=== PATIENT | male | born 1940 | race Asian ===

== ENCOUNTER 2018-05-26 13:28 | Inpatient (IN) | payer OTHER ==
[~2018-05-26] VITALS: Ht 167.6 cm; Wt 61.7 kg
[2018-05-26] MEDS ORDERED: AMLO10TA4 PO (14:19)
[2018-05-26] MEDS ORDERED: ATEN100T PO (14:19)
[2018-05-26] MEDS ORDERED: HYDR25TA4 PO (14:19)
[2018-05-26] MEDS ORDERED: LOSA50TA21 PO (14:19)
[2018-05-26] MEDS ORDERED: TAMS-12 PO (14:19)
[2018-05-26] MEDS ORDERED: ASPI-1169 PO (14:19)
[2018-05-26] MEDS ORDERED: ERGO500014 PO (14:19)
[2018-05-26] MEDS ORDERED: ATOR10TA PO (14:19)
[2018-05-26 14:44] LABS: BASOPHILS % (AUTO) 0.7 % (0.0-2.0); EOSINOPHILS % (AUTO) 1.8 % (0.0-6.0); HEMATOCRIT 38 % (39-51); HEMOGLOBIN 12.8 g/dL (13.5-17.5); LYMPHOCYTES # (AUTO) 1.5 /CMM (0.8-4.8); LYMPHOCYTES % (AUTO) 29.7 % (20.0-44.0); MEAN CORPUSCULAR HEMOGLOBIN 32 PG (26.0-33.0); MEAN CORPUSCULAR HGB CONC 34 g/dl (31.0-36.0); MEAN CORPUSCULAR VOLUME 92 fL (80-96); MONOCYTES # (AUTO) 0.4 /CMM (0.1-1.30); MONOCYTES % (AUTO) 8.5 % (2.0-12.0); NEUTROPHILS % (AUTO) 59.3 % (43.0-81.0); PLATELET COUNT (AUTO) 206 /CMM (150-450); RDW COEFFICIENT OF VARIATION 11.7 (11.5-15.0); RED BLOOD CELL COUNT(AUTO) 4.08 MIL/uL (4.5-6.0)
[2018-05-26 14:53] LABS: CALCIUM, SERUM 8.3 mg/dL (8.5-10.1); CARBON DIOXIDE 30 mmol/L (21-32); CHLORIDE 104 mmol/L (98-107); CREATININE 0.9 mg/dL (0.6-1.3); GLUCOSE 115 mg/dL (74-106); POTASSIUM 4.1 mmol/L (3.5-5.1); SODIUM SERUM 137 mmol/L (136-145); UREA NITROGEN, BLOOD 19 mg/dL (7-18)
[2018-05-26 14:58] LABS: ALANINE AMINOTRANSFERASE 34 U/L (12-78); ALBUMIN 3.3 g/dL (3.4-5.0); ALCOHOL, BLOOD < 3 mg/dL (0-0); ALKALINE PHOSPHATASE 64 U/L (46-116); ASPARTATE AMINOTRANSFERASE 28 U/L (15-37); BILIRUBIN,DIRECT 0.1 mg/dL (0.0-0.2); BILIRUBIN,TOTAL 0.6 mg/dL (0.2-1.0); TOTAL PROTEIN, SERUM 6.3 g/dL (6.4-8.2)
[2018-05-26 15:04] LABS: ACETAMINOPHEN < 2 ug/ml (10-30); SALICYLATE < 2.8 mg/dL (2.8-20.0)
[2018-05-26] MEDS ORDERED: SULFAMETH/TRIMETH 800/160 MG 1 UDTAB TABLET PO ONE ×2 (15:30→15:48)
[2018-05-26] MEDS ORDERED: CEPHALEXIN MONOHYDRATE 500 MG CAPSULE PO ONE ×2 (15:30→15:48)
[2018-05-26 15:48] LABS: APPEARANCE,URINE Clear (CLEAR); BILIRUBIN,URINE Negative (NEGATIVE); BLOOD, URINE Trace-intact Ery/uL (NEGATIVE); COLOR,URINE Yellow (YELLOW); KETONES,URINE 15 (NEGATIVE); LEUKOCYTE ESTERASE ,URINE Negative (NEGATIVE); NITRITE, URINE Negative (NEGATIVE); PH,URINE 6.5 (5.0-8.0); PROTEIN,URINE Negative (NEGATIVE); UGLUCOSE Negative (NEGATIVE); UROBILINOGEN,URINE 0.2 EU/dL (0.2)
[2018-05-26 16:03] LABS: BACTERIA,URINE None seen /HPF (None Seen); SQUAMOUS EPITHELIAL CELL,UR Few /HPF (None Seen); WBC,URINE 0-2 /HPF (0-3)
--- NOTE | 2018-05-26 16:06 | NUR ---
REPORT GIVEN TO GIORGIO ARROYO FOR MARCIE
[2018-05-26] MEDS ORDERED: MAG HYDROX/AL HYDROX/SIMETH 30 ML UDC PO PRN (17:00)
[2018-05-26] MEDS ORDERED: ACETAMINOPHEN 325 MG TABLET PO PRN (17:00)
[2018-05-26] MEDS ORDERED: MAGNESIUM HYDROXIDE 30 ML UDC PO PRN (17:00)
--- NOTE | 2018-05-26 18:26 | NUR ---
ADMISSION NOTE: PATIENT ARRIVED FROM ER AT 1430. PATIENT ADMITTED FOR PSYCHOSIS. CALM COOPERATIVE. PSYCHIATRIST NOTIFIED, ORDERS IN. DEPUTY MANAGER PAGED FOR MED RECON, BUT NO REPLY YET. WILL FOLLOW UP WITH INCOMING NURSE. BELONGINGS CHECKED IN. MEDS BROUGHT IN BY PATIENT CHECKED IN. SKIN ASSESSMENT COMPLETE AND IN CHART. ADMISSION PAPERS SIGNED. ER SAID MRSA DONE. PATIENT ORIENTED TO UNIT POLICIES AND PROCEDURES. WILL KEEP THE PATIENT COMFORTABLE.
[2018-05-26 20:00] VITALS: BP 152/89
[2018-05-26] MEDS: ERGOCALCIFEROL (VITAMIN D 2) 50,000 UNIT CAPSULE PO SCH (22:14)
[2018-05-27] MEDS: ZOLPIDEM TARTRATE 5 MG TABLET PO PRN ×2 (01:21→23:03)
[2018-05-27 07:11] LABS: ALANINE AMINOTRANSFERASE 39 U/L (12-78); ALBUMIN 3.7 g/dL (3.4-5.0); ALKALINE PHOSPHATASE 55 U/L (46-116); ASPARTATE AMINOTRANSFERASE 28 U/L (15-37); BILIRUBIN,TOTAL 0.5 mg/dL (0.2-1.0); CARBON DIOXIDE 25 mmol/L (21-32); CHLORIDE 102 mmol/L (98-107); GLUCOSE 125 mg/dL (74-106); POTASSIUM 4.1 mmol/L (3.5-5.1); SODIUM SERUM 138 mmol/L (136-145); TOTAL PROTEIN, SERUM 7.1 g/dL (6.4-8.2); UREA NITROGEN, BLOOD 18 mg/dL (7-18)
[2018-05-27 07:13] LABS: CHOLESTEROL 175 mg/dL (<200); HDL CHOLESTEROL 73 mg/dL (40-60); LDL 95 mg/dL (0-99); TRIGLYCERIDES 88 mg/dL (30-150)
[2018-05-27 08:00] VITALS: BP 142/80
[2018-05-27] MEDS: CEPHALEXIN MONOHYDRATE 500 MG CAPSULE PO SCH ×2 (09:24→17:24)
[2018-05-27] MEDS: ASPIRIN 81 MG TAB.CHEW PO SCH (09:24)
[2018-05-27] MEDS: AMLODIPINE BESYLATE 10 MG TABLET PO SCH (09:25)
[2018-05-27] MEDS: HYDROCHLOROTHIAZIDE 25 MG TABLET PO SCH (09:25)
[2018-05-27] MEDS: LOSARTAN POTASSIUM 50 MG TABLET PO SCH (09:26)
[2018-05-27] MEDS: ATENOLOL 50 MG TABLET PO SCH (09:26)
[2018-05-27] MEDS: LORAZEPAM 0.5 MG TABLET PO PRN ×2 (09:27→22:01)
--- NOTE | 2018-05-27 11:56 | NUR ---
INITIAL DISCHARGE PLAN: Per pts son Syd [phone] pt will return home to [address] [phone]. SW will help form a safe and proper discharge in collaboration with .
[2018-05-27] MEDS: DIVALPROEX SODIUM 125 MG CAP.SPRINK PO SCH ×2 (12:16→22:01)
--- NOTE | 2018-05-27 15:02 | NUR ---
GUN REPORT: RASHID contacted [facility] [address] [place] [address] and spoke with Officer #[phone] to recover weapons from pts home. Officer stated that they first need permission from pts son Syd [phone] to recover weapons. RASHID will contact pts son to receive authorization. Addendum: 05/27/18 at 1529 by ANTONIO MIKE RASHID spoke with tube dispatcher #[phone] and provided them with confirmation to recover weapon from pts son. Officer stated they would be going to pts home to recover the weapon. Addendum: 05/27/18 at 1546 by ANTONIO MIKE RASHID received a phone call from Officer Jayme morales #[phone] to confirm weapons have been recovered from pts home. Addendum: 05/27/18 at 1549 by ANTONIO MIKE RASHID faxed hold and face sheet to [facility] [phone] per Officer Jayme's request.
--- NOTE | 2018-05-27 15:08 | NUR ---
RASHID contacted pts son Syd [phone] to notify him that pt had reported during psychiatric evaluation that he has 4 fire arms in his home. 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 Addendum: 05/27/18 at 1530 by ANTONIO MIKE Pts son gave SW confirmation that weapon was in the home and gave NOHEMY permission to recover weapon from pts home.
[2018-05-27 16:00] VITALS: BP 128/66
[2018-05-27] MEDS: TAMSULOSIN 0.4 MG CAP.SR.24H PO SCH (17:24)
[2018-05-27] MEDS: QUETIAPINE FUMARATE 25 MG TABLET PO SCH (17:24)
[2018-05-27] MEDS: ATORVASTATIN 10 MG TABLET PO SCH (17:25)
[2018-05-27 20:00] VITALS: BP 113/59
--- NOTE | 2018-05-28 04:27 | NUR ---
PT IS AGGRESSIVE, HOSTILE, SCREAMING/YELLING, COMBATIVE AT STAFF, VERBALLY ABUSIVE, HIT HIS HEAD ON THE WALL. CALLED DR. OBANDO FOR IM ORDER. ORDERED ZYPREXA 5MG, ATIVAN 1MG IM GIVEN ORDERED. V/S WNL. PT TOLERATED WELL. WILL CONTINUE TO MONITOR FOR SAFETY AND BEHAVIOR [id number].
[2018-05-28] MEDS ORDERED: OLANZAPINE 10 MG VIAL IM ONE (04:30)
[2018-05-28] MEDS ORDERED: LORAZEPAM INJ 2 MG/ML VIAL IM ONE (04:30)
[2018-05-28 08:00] VITALS: BP 123/65
[2018-05-28] MEDS: ASPIRIN 81 MG TAB.CHEW PO SCH (08:58)
[2018-05-28] MEDS: CEPHALEXIN MONOHYDRATE 500 MG CAPSULE PO SCH ×2 (08:58→17:17)
[2018-05-28] MEDS: DIVALPROEX SODIUM 125 MG CAP.SPRINK PO SCH ×2 (08:58→22:08)
[2018-05-28] MEDS: QUETIAPINE FUMARATE 25 MG TABLET PO SCH ×2 (08:59→17:17)
[2018-05-28] MEDS: HYDROCHLOROTHIAZIDE 25 MG TABLET PO SCH (08:59)
[2018-05-28] MEDS: AMLODIPINE BESYLATE 10 MG TABLET PO SCH (09:00)
[2018-05-28] MEDS: LOSARTAN POTASSIUM 50 MG TABLET PO SCH (09:01)
[2018-05-28] MEDS: ATENOLOL 50 MG TABLET PO SCH (09:02)
[2018-05-28 16:00] VITALS: BP 95/64
[2018-05-28] MEDS: ATORVASTATIN 10 MG TABLET PO SCH (17:17)
[2018-05-28] MEDS: TAMSULOSIN 0.4 MG CAP.SR.24H PO SCH (17:17)
[2018-05-28 20:00] VITALS: BP 118/52
[2018-05-28] MEDS: ZOLPIDEM TARTRATE 5 MG TABLET PO PRN (22:09)
[2018-05-29 08:00] VITALS: BP 130/81
[2018-05-29] MEDS: HYDROCHLOROTHIAZIDE 25 MG TABLET PO SCH (08:10)
[2018-05-29] MEDS: LORAZEPAM 0.5 MG TABLET PO PRN (08:10)
[2018-05-29] MEDS: QUETIAPINE FUMARATE 25 MG TABLET PO SCH ×2 (08:11→16:32)
[2018-05-29] MEDS: LEVOTHYROXINE SODIUM 25 MCG TABLET PO SCH (08:11)
[2018-05-29] MEDS: ATENOLOL 50 MG TABLET PO SCH (08:11)
[2018-05-29] MEDS: ASPIRIN 81 MG TAB.CHEW PO SCH (08:11)
[2018-05-29] MEDS: CEPHALEXIN MONOHYDRATE 500 MG CAPSULE PO SCH ×2 (08:11→16:32)
[2018-05-29] MEDS: DIVALPROEX SODIUM 125 MG CAP.SPRINK PO SCH ×3 (08:11→20:05)
[2018-05-29] MEDS: AMLODIPINE BESYLATE 10 MG TABLET PO SCH (08:12)
[2018-05-29] MEDS: LOSARTAN POTASSIUM 50 MG TABLET PO SCH (08:12)
[2018-05-29 16:00] VITALS: BP 118/66
[2018-05-29] MEDS: TAMSULOSIN 0.4 MG CAP.SR.24H PO SCH (16:32)
[2018-05-29] MEDS: ATORVASTATIN 10 MG TABLET PO SCH (16:32)
[2018-05-29 19:39] VITALS: BP 105/60
[2018-05-29] MEDS: ZOLPIDEM TARTRATE 5 MG TABLET PO PRN (21:48)
[2018-05-30] MEDS: LEVOTHYROXINE SODIUM 25 MCG TABLET PO SCH (07:30)
[2018-05-30 08:23] VITALS: BP 99/61
[2018-05-30] MEDS: LOSARTAN POTASSIUM 50 MG TABLET PO SCH (08:42)
[2018-05-30] MEDS: DIVALPROEX SODIUM 125 MG CAP.SPRINK PO SCH ×3 (08:43→19:32)
[2018-05-30] MEDS: CEPHALEXIN MONOHYDRATE 500 MG CAPSULE PO SCH ×2 (08:43→17:12)
[2018-05-30] MEDS: ATENOLOL 50 MG TABLET PO SCH (08:44)
[2018-05-30] MEDS: AMLODIPINE BESYLATE 10 MG TABLET PO SCH (08:44)
[2018-05-30] MEDS: HYDROCHLOROTHIAZIDE 25 MG TABLET PO SCH (08:45)
[2018-05-30] MEDS: QUETIAPINE FUMARATE 25 MG TABLET PO SCH ×2 (08:51→17:12)
[2018-05-30] MEDS: ASPIRIN 81 MG TAB.CHEW PO SCH (08:57)
--- NOTE | 2018-05-30 11:32 | NUR ---
UR NOTE: RASHID contacted [facility] guidance services coordinator Eliz to request authorization # and days approved and contact info for pts assigned CM with [facility]. Eliz, stated she did not have that information.
[2018-05-30 16:00] VITALS: BP 148/86
[2018-05-30] MEDS: TAMSULOSIN 0.4 MG CAP.SR.24H PO SCH (17:12)
[2018-05-30] MEDS: ATORVASTATIN 10 MG TABLET PO SCH (17:12)
[2018-05-30 19:30] VITALS: BP 139/67
[2018-05-30] MEDS: LORAZEPAM 0.5 MG TABLET PO PRN (21:00)
[2018-05-31] MEDS: ZOLPIDEM TARTRATE 5 MG TABLET PO PRN ×2 (00:45→22:52)
[2018-05-31 08:00] VITALS: BP 131/85
[2018-05-31] MEDS: LEVOTHYROXINE SODIUM 25 MCG TABLET PO SCH (08:15)
[2018-05-31] MEDS: CEPHALEXIN MONOHYDRATE 500 MG CAPSULE PO SCH ×2 (08:15→17:06)
[2018-05-31] MEDS: AMLODIPINE BESYLATE 10 MG TABLET PO SCH (08:16)
[2018-05-31] MEDS: ASPIRIN 81 MG TAB.CHEW PO SCH (08:16)
[2018-05-31] MEDS: DIVALPROEX SODIUM 125 MG CAP.SPRINK PO SCH ×4 (08:16→21:07)
[2018-05-31] MEDS: LOSARTAN POTASSIUM 50 MG TABLET PO SCH (08:16)
[2018-05-31] MEDS: HYDROCHLOROTHIAZIDE 25 MG TABLET PO SCH (08:16)
[2018-05-31] MEDS: QUETIAPINE FUMARATE 25 MG TABLET PO SCH ×2 (08:16→17:06)
[2018-05-31] MEDS: ATENOLOL 50 MG TABLET PO SCH (08:17)
--- NOTE | 2018-05-31 10:08 | NUR ---
UR NOTE: authorization #[id number] in review costume shop coordinator called [facility] [phone] and spoke with Joaquín. Pending auth number.
[2018-05-31 16:00] VITALS: BP 152/96
[2018-05-31] MEDS: ATORVASTATIN 10 MG TABLET PO SCH (17:06)
[2018-05-31] MEDS: TAMSULOSIN 0.4 MG CAP.SR.24H PO SCH (17:06)
[2018-05-31] MEDS: LORAZEPAM 0.5 MG TABLET PO PRN (19:19)
[2018-05-31 20:08] VITALS: BP 146/89
[2018-06-01 08:00] VITALS: BP 98/59
[2018-06-01] MEDS: QUETIAPINE FUMARATE 25 MG TABLET PO SCH ×2 (08:00→17:17)
[2018-06-01] MEDS: LEVOTHYROXINE SODIUM 25 MCG TABLET PO SCH (08:00)
[2018-06-01] MEDS: ASPIRIN 81 MG TAB.CHEW PO SCH (08:00)
[2018-06-01] MEDS: CEPHALEXIN MONOHYDRATE 500 MG CAPSULE PO SCH ×2 (08:00→17:17)
[2018-06-01] MEDS: DIVALPROEX SODIUM 125 MG CAP.SPRINK PO SCH ×4 (08:00→20:33)
[2018-06-01] MEDS: AMLODIPINE BESYLATE 10 MG TABLET PO SCH (08:01)
[2018-06-01] MEDS: HYDROCHLOROTHIAZIDE 25 MG TABLET PO SCH (08:01)
[2018-06-01] MEDS: ATENOLOL 50 MG TABLET PO SCH (08:01)
[2018-06-01] MEDS: LOSARTAN POTASSIUM 50 MG TABLET PO SCH (08:02)
--- NOTE | 2018-06-01 13:27 | NUR ---
and RASHID contacted pts misty Velarde [phone] to discuss pts Dx, behavior, and discharge plan. Pts son wants pt discharged to SNF however due to pts HMO insurance SW is unable to discharge to a SNF deu to HMO restrictions. explained to pts son HMO regulations and also stated that pt could not be discharged to a [place] [facility] [place] and needed to be discharged home. Pts son understood and stated that pt will be discharged home on Wednesday06/03/18.
[2018-06-01] MEDS: LORAZEPAM 0.5 MG TABLET PO PRN ×2 (14:00→20:34)
--- NOTE | 2018-06-01 14:01 | NUR ---
GPS RN NOTE: PT IN THE HALLWAY SCREAMING YELLING ATIVAN 1 MG PO PRN GIVEN WILL CONTINUE MONITORING
[2018-06-01 16:00] VITALS: BP 126/79
--- NOTE | 2018-06-01 16:02 | NUR ---
RASHID received a voicemail from pts misty Chaudhari [phone] asking RASHID to fax SNF referral to [facility] psych coordinator at [facility] Address: [address] [place] [address] .
--- NOTE | 2018-06-01 16:04 | NUR ---
RASHID spoke with Emily district sales coordinator at [facility] Address: [address] [place] [address] regarding pts son Watson's request to fax SNF referral. Emily stated that she spoke with pts son however did not guarantee that pt would be accepted. Emily asked RASHID to fax referral and would have a status by tomorrow 06/02/18.
--- NOTE | 2018-06-01 16:09 | NUR ---
RASHID faxed SNF referral to Emily emergency medical service coordinator at [facility] Address: [address], [place] [address] for review.
[2018-06-01] MEDS: TAMSULOSIN 0.4 MG CAP.SR.24H PO SCH (17:17)
[2018-06-01] MEDS: ATORVASTATIN 10 MG TABLET PO SCH (17:17)
[2018-06-01 19:38] VITALS: BP 101/62
[2018-06-01] MEDS: ZOLPIDEM TARTRATE 5 MG TABLET PO PRN (20:09)
[2018-06-02 07:08] LABS: BASOPHILS % (AUTO) 0.1 % (0.0-2.0); EOSINOPHILS % (AUTO) 1.7 % (0.0-6.0); HEMATOCRIT 40 % (39-51); LYMPHOCYTES # (AUTO) 0.7 /CMM (0.8-4.8); LYMPHOCYTES % (AUTO) 18.3 % (20.0-44.0); MEAN CORPUSCULAR HEMOGLOBIN 31 PG (26.0-33.0); MEAN CORPUSCULAR HGB CONC 32 g/dl (31.0-36.0); MEAN CORPUSCULAR VOLUME 95 fL (80-96); MONOCYTES # (AUTO) 0.7 /CMM (0.1-1.30); MONOCYTES % (AUTO) 17.4 % (2.0-12.0); NEUTROPHILS # (AUTO) 2.5 /CMM (1.8-8.9); NEUTROPHILS % (AUTO) 62.5 % (43.0-81.0); PLATELET COUNT (AUTO) 207 /CMM (150-450); RDW COEFFICIENT OF VARIATION 12.9 (11.5-15.0); RED BLOOD CELL COUNT(AUTO) 4.23 MIL/uL (4.5-6.0)
[2018-06-02 07:12] LABS: CALCIUM, SERUM 8.7 mg/dL (8.5-10.1); CARBON DIOXIDE 32 mmol/L (21-32); CHLORIDE 96 mmol/L (98-107); CREATININE 0.8 mg/dL (0.6-1.3); GLUCOSE 113 mg/dL (74-106); MAGNESIUM 2.2 mg/dL (1.8-2.4); POTASSIUM 4.3 mmol/L (3.5-5.1); SODIUM SERUM 133 mmol/L (136-145); UREA NITROGEN, BLOOD 15 mg/dL (7-18)
[2018-06-02 08:00] VITALS: BP 135/71
[2018-06-02 08:34] LABS: BAND % (MANUAL) 1 % (0.0-5.0); EOSINOPHILS % (MANUAL) 1 % (0-4); LYMPHOCYTES % (MANUAL) 18 % (16-48); MONOCYTES % (MANUAL) 16 % (0-11.0); NEUTROPHILS % (MANUAL) 64 (42-76)
[2018-06-02] MEDS: ASPIRIN 81 MG TAB.CHEW PO SCH (08:46)
[2018-06-02] MEDS: DIVALPROEX SODIUM 125 MG CAP.SPRINK PO SCH ×4 (08:46→21:43)
[2018-06-02] MEDS: CEPHALEXIN MONOHYDRATE 500 MG CAPSULE PO SCH ×2 (08:46→16:18)
[2018-06-02] MEDS: LEVOTHYROXINE SODIUM 25 MCG TABLET PO SCH (08:46)
[2018-06-02] MEDS: QUETIAPINE FUMARATE 25 MG TABLET PO SCH ×4 (08:46→21:43)
[2018-06-02] MEDS: LOSARTAN POTASSIUM 50 MG TABLET PO SCH (08:46)
[2018-06-02] MEDS: AMLODIPINE BESYLATE 10 MG TABLET PO SCH (08:47)
[2018-06-02] MEDS: HYDROCHLOROTHIAZIDE 25 MG TABLET PO SCH (08:47)
[2018-06-02] MEDS: ATENOLOL 50 MG TABLET PO SCH (08:47)
--- NOTE | 2018-06-02 09:59 | NUR ---
RASHID spoke with pts misty Chaudhari [phone] regarding HMO coverage and discharge plan. RASHID explained to pts son that pt is scheduled for discharge on Wednesday06/03/18 and if family opposes to discharge they will be charged $1000/day. Pts son asked SW to please contact pts HMO to ask for SNF approval. RASHID will attempt to contact [facility] [phone] fro SNF approval.
--- NOTE | 2018-06-02 10:21 | NUR ---
UR NOTE: RASHID contacted [facility] [phone] and spoke with Nadiya regarding authorization and coverage. Nadiya stated that [facility] received notice and are aware that pt is currently in an acute psychiatric unit and stated that the case is still open and once pt is discharged they will send authorization the permit coordinator. Nadiya provided SW with authorization #[id number]. RASHID also asked if they would authorization short term SNF placement, Nadiya transferred SW with Apryl schwartz nurse human services case manager [phone] ex:[phone] who provided SW with a list of SNF that are contracted with [facility] and also provided SW with [facility] [phone] contact info and provided SW with a verbal ambulance authorization for transport. Auth #: [id number].
--- NOTE | 2018-06-02 10:26 | NUR ---
RASHID faxed SNF referral to Dandy at [facility] Address: [address], [place] [address] for review.
--- NOTE | 2018-06-02 10:30 | NUR ---
RASHID faxed SNF referral to Kaya material coordinator at [facility] Address: [address], [place] [address] for review.
--- NOTE | 2018-06-02 10:40 | NUR ---
RASHID faxed SNF referral to Pierson institutional research coordinator at [facility] Address: [address], [place] [address] for review.
--- NOTE | 2018-06-02 11:04 | NUR ---
SW received a phone call from Ray change coordinator at [facility] Address: [address], [place] [address] stating that facility cannot take pt pam to psychiatric hospitalization and aggressive behavior noted on H&P.
--- NOTE | 2018-06-02 11:11 | NUR ---
RASHID faxed SNF referral to Rochelle salon coordinator at [facility] Address: [address], [place] [address] for review.
--- NOTE | 2018-06-02 12:00 | NUR ---
SW received a phone call from Rochelle service parts coordinator at [facility] Address: [address] , [place] [address] stating that facility is not able to accommodate pts needs based on his behavior.
--- NOTE | 2018-06-02 14:52 | NUR ---
UR NOTE: SW received a phone call from Apryl schwartz nurse major case detective [phone] ex:[phone] stating that [facility] approved placement for pt at [facility].
[2018-06-02 16:00] VITALS: BP 133/71
[2018-06-02] MEDS: TAMSULOSIN 0.4 MG CAP.SR.24H PO SCH (17:17)
[2018-06-02] MEDS: ATORVASTATIN 10 MG TABLET PO SCH (17:17)
[2018-06-02 20:00] VITALS: BP 124/61
[2018-06-02] MEDS: ERGOCALCIFEROL (VITAMIN D 2) 50,000 UNIT CAPSULE PO SCH (21:43)
[2018-06-02] MEDS: ZOLPIDEM TARTRATE 5 MG TABLET PO PRN (21:44)
[2018-06-03 08:00] VITALS: BP 110/66
[2018-06-03] MEDS: CEPHALEXIN MONOHYDRATE 500 MG CAPSULE PO SCH (08:30)
[2018-06-03] MEDS: LEVOTHYROXINE SODIUM 25 MCG TABLET PO SCH (08:31)
[2018-06-03] MEDS: QUETIAPINE FUMARATE 25 MG TABLET PO SCH ×2 (08:31→12:06)
[2018-06-03] MEDS: AMLODIPINE BESYLATE 10 MG TABLET PO SCH (08:31)
[2018-06-03] MEDS: DIVALPROEX SODIUM 125 MG CAP.SPRINK PO SCH ×2 (08:31→12:06)
[2018-06-03] MEDS: ASPIRIN 81 MG TAB.CHEW PO SCH (08:31)
[2018-06-03] MEDS: HYDROCHLOROTHIAZIDE 25 MG TABLET PO SCH (08:32)
[2018-06-03 08:34] VITALS: BP 110/66
[2018-06-03] MEDS: ATENOLOL 50 MG TABLET PO SCH (08:34)
[2018-06-03] MEDS: LOSARTAN POTASSIUM 50 MG TABLET PO SCH (08:34)
--- NOTE | 2018-06-03 13:41 | NUR ---
DISCHARGE NOTE: Pt was discharged to [facility] ([facility]) located at [address] [place], [place] [address]; ([phone]). Pt's son, Syd ([phone]), was notified of this placement and approved of it. Upon discharge, the pt appeared to be in a euthymic mood with a calm affect. He presented as oriented, well groomed and appropriately dressed. The pt denied having any suicidal or homicidal ideation as well as any auditory or visual hallucinations. Pt will be under the care of psychiatrist, Dr. Hernandes, located at [address] [place] [address]; ([phone]) and secretary of state, Dr. Alegre, located at [address], [address], [place] [address]; ([phone]).
--- NOTE | 2018-06-03 13:44 | NUR ---
GPS/RN-NOTES PATIENT WAS DISCHARGE TO [facility] TODAY. DR. OBANDO AND ACCOUNT MANAGEMENT SPECIALIST JIGNESH AWARE AND AGREES OF PATIENT DISCHARGE WITH ORDERS. REPORT WAS GIVEN TO CELSO ( FACILITY MEDICAL SECRETARY CHARGE NURSE ). PATIENT DID NOT VERBALIZE SI/HI,DENIES VISUAL,AUDITORY HALLUCINATIONS AT THE TIME OF DISCHARGE. PATIENT LEFT THE UNIT ALERT ORIENTED X2,AMBULATORY IN STABLE CONDITIONS WITH ALL HIS BELONGINGS. POWDER WORKER TNT BY AMBULANCE VIA GURNEY WITH TWO STAFF ASSIST.PATIENT'S SON MARI MADE AWARE OF THE DISCHARGE.
== END 2018-06-03 13:10 | disposition other institution (70) | DRG 885 ==
LOC: ER 13:30 → GPS 16:07
PROVIDERS: ADMIT Psychiatry & Neurology Psychiatry; ATTEND Psychiatry & Neurology Psychiatry
DX: F31.9 Bipolar disorder, unspecified (principal); F01.50 Vascular dementia, unspecified severity, without behavioral disturbance, psychotic disturbance, mood disturbance, and anxiety; L03.115 Cellulitis of right lower limb; E44.1 Mild protein-calorie malnutrition; F29 Unspecified psychosis not due to a substance or known physiological condition; E03.9 Hypothyroidism, unspecified; F03.90 Unspecified dementia, unspecified severity, without behavioral disturbance, psychotic disturbance, mood disturbance, and anxiety; Z79.82 Long term (current) use of aspirin; Z79.899 Other long term (current) drug therapy; M71.21 Synovial cyst of popliteal space [Baker], right knee; E78.5 Hyperlipidemia, unspecified; I10 Essential (primary) hypertension; E55.9 Vitamin D deficiency, unspecified; N40.0 Benign prostatic hyperplasia without lower urinary tract symptoms; D64.9 Anemia, unspecified
CPT/HCPCS: 36415; 70450-TC; 80048-TC; 80053-TC; 80061-TC; 80076-TC; 80164-TC; 80305; 81000-TC; 83735-TC; 84100-TC; 84443-TC; 85025-TC; 87081-TC; 93971-TC; A4606; G0480; J2060; J3490; Z7610